=== PATIENT | male | born 1960 | race Caucasian/White ===

== ENCOUNTER 2020-08-12 19:19 | Inpatient (IN) | payer BC ==
[~2020-08-12] VITALS: Ht 182.9 cm; Wt 161.9 kg
[~2020-08-12 19:19] MED LIST: CLARITIN 1010 MG/TAB PO; NORVASC 5MG5 MG/TAB PO; PRILOSEC 20MG20 MG PO; ZITHROMAX Z PA250 MG PO
[2020-08-12 20:06] LABS: BASO # 0.1 (0.0-0.2); BASO % 0.6 % (0.0-2.0); EOS # 0.5 (0.0-0.7); EOS % 5.1 % (0-4.0); GRAN # 5.1 (1.4-6.5); GRAN % 50.4 % (42.2-75.2); HEMATOCRIT 45.4 % (42.0-52.0); HEMOGLOBIN 14.9 g/dl (13.5-18.0); LYMPH # 3.7 (1.2-3.4); LYMPH % 36.4 % (20.0-51.0); MEAN CELL VOLUME 88 fl (80.0-100.0); MEAN CORPUSCULAR HEMOGLOBIN 29 pg (27.0-31.0); MEAN CORPUSCULAR HGB CONC 33 g/dl (33.0-37.0); MEAN PLATELET VOLUME 9.8 fl (7.4-10.4); MONO # 0.7 (0.1-0.6); PLATELET COUNT 326 K/mm3 (130-400); RED BLOOD COUNT 5.18 M/mm3 (4.20-5.60); REDCELL DISTRIBUTION WIDTH-CV 12.6 % (11.5-14.5)
[2020-08-12 20:18] LABS: ALBUMIN 4.1 gm/dL (3.5-5.0); BILIRUBIN,TOTAL 0.2 mg/dL (0.0-1.0); CALCIUM 9.3 mg/dL (8.4-10.2); CREATININE, serum 0.8 (0.66-1.25); POTASSIUM 3.9 mmol/L (3.4-5.0); TOTAL PROTEIN 7.6 gm/dL (6.4-8.2)
[2020-08-12 20:31] LABS: TROPONIN-I 1.64 ng/mL (0.000-0.035)
[2020-08-12] MEDS ORDERED: ASPIRIN E.C. 8181 MG PO (21:34)
[2020-08-12] MEDS ORDERED: NORVASC 10MG10 MG PO (21:34)
[2020-08-12] MEDS ORDERED: NITROGLYCE0.4 MG/Ac2 TL (21:35)
[2020-08-12] MEDS ORDERED: COREG 6.256.25 MG/TA PO (21:35)
[2020-08-12] MEDS ORDERED: LIPITOR 80MG80 MG PO (21:35)
[2020-08-12] MEDS ORDERED: IMDUR 60MG60 MG/TAB PO (21:35)
[2020-08-12 22:58] VITALS: BP 151/82; PULSE 62; TEMP 98.2
[2020-08-12] MEDS ORDERED: ONE-A-DAY ESSE1 EACH PO (23:01)
[2020-08-12] MEDS ORDERED: OMEGA-3 1000 MG1 CAP PO (23:01)
[2020-08-12] MEDS ORDERED: PHARMASSURE ZIN50 MG PO (23:01)
--- NOTE | 2020-08-12 23:57 | NUR ---
Patient alert and oriented x 4, and able to make needs known. Denies having pain and discomfort at this time. Peripheral IV to right forearm. NS running per orders. Heparin drip running at 10 ml/hr. Site without redness, warmth, swelling, and pain. Denies having SOB and dyspnea, except with exertion. HRR. Telemetry in place. Capillary refill less than 3 seconds. Non-tenting skin turgor. BSAx4. Abdomen soft and non-tender. Voices no questions, needs, or concerns at this time. Resting in bed with call light within reach.
[2020-08-13] VITALS (219 sets, daily range): BP systolic 121–150; BP diastolic 59–88; PULSE 60–110; TEMP 98–98.9; O2SAT 89–100
[2020-08-13] LABS: MAGNESIUM 2.2 mg/dL (1.6-2.3)
[2020-08-13 00:14] LABS: TROPONIN-I 1.56 ng/mL (0.000-0.035)
[2020-08-13 03:43] LABS: PARTIAL THROMBOPLASTIN TIME 42.1 SECONDS (26.0-37.0)
--- NOTE | 2020-08-13 05:50 | NUR ---
Patient has been resting in bed with call light within reach. Denies having pain and discomfort. IV fluids continue per orders. Heparin drip increased to 11.5 ml/hr (1150 units/hr) per protocol, and verified by Charge nurse. Recheck lab at 1000. Has been NPO per orders. Voices no questions, needs, or concerns at this time. Resting in bed with call light within reach.
[2020-08-13 07:06] LABS: HEMATOCRIT 45.6 % (42.0-52.0); HEMOGLOBIN 15.1 g/dl (13.5-18.0); MEAN CELL VOLUME 88 fl (80.0-100.0); MEAN CORPUSCULAR HEMOGLOBIN 29 pg (27.0-31.0); MEAN CORPUSCULAR HGB CONC 33 g/dl (33.0-37.0); MEAN PLATELET VOLUME 9.6 fl (7.4-10.4); PLATELET COUNT 303 K/mm3 (130-400); REDCELL DISTRIBUTION WIDTH-CV 12.7 % (11.5-14.5)
[2020-08-13 07:18] LABS: CREATININE, serum 0.82 (0.66-1.25)
[2020-08-13 07:19] LABS: CHOLESTEROL RISK RATIO 5.2
[2020-08-13 07:35] LABS: TROPONIN-I 1.24 ng/mL (0.000-0.035)
--- NOTE | 2020-08-13 07:44 | NUR ---
CRITICAL TROPONIN RESULT OF 1.24 CALLED TO MARILUZ KEYES. NO ORDERS GIVEN AT THIS TIME.
--- NOTE | 2020-08-13 08:20 | NUR ---
PATIENT ALERT & ORIENTED. VITAL SIGNS STABLE. DENIES PAIN AT THIS TIME. NPO WITH NO N/V. PATIENT ADMITTED WITH NSTEMI. TELEMETRY HEART MONITOR NORMAL SINUS RHYTHM. AUSCULTATION SHOWS REGULAR HEART RATE WITH S1 & S2 SOUNDS PRESENT. BOWEL SOUNDS HYPOACTIVE X4. DENIES PASSING GAS. PEDAL PULSES 1+ AND TIBIALIS POSTERIORS 1+. ALL OTHER ASSESSMENTS WITHIN NORMAL LIMITS. IV RIGHT FOREARM WITH NORMAL SALINE RUNNING @ 30 ML/HR AND HEPARIN DRIP AT 11.5 UNITS/HR. NO REDNESS, DRAINAGE, OR EDEMA PRESENT. DENIES OTHER NEEDS AT THIS TIME. WILL CONTINUE TO MONITOR. CALL LIGHT WITHIN REACH.
--- NOTE | 2020-08-13 08:20 | NUR ---
MORNING SHIFT ASSESSMENT DOCUMENTED BY SN LB. THIS NURSE REVIEWED AND AGREES WITH DOCUMENTED SHIFT ASSESSMENT.
--- NOTE | 2020-08-13 08:22 | NUR ---
Patient's left forefinger and thumb cool to touch with delayed cap refill. Radial pulse palpable and equal bilaterally.
--- NOTE | 2020-08-13 09:05 | NUR ---
PATIENT CALLED OUT REPORTING LEFT ARM WEAKNESS. UPON ENTRY TO THE ROOM THE PATIENT STATES THAT HE HAS NEW SORENESS IN HIS SHOULDER THAT RADIATES DOWN TO HIS ELBOW. PATIENT STATES THAT THESE ARE NEW SYMPTOMS FOR HIM. MARILUZ KEYES CALLED AND NOTIFIED. ORDERS FOR EKG AND TROPONIN PLACED. RUFINO WITH CARDIOPULMONARY NOTIFED.
--- NOTE | 2020-08-13 10:26 | NUR ---
CONSENT FORM FOR CARDIAC CATH SIGNED AND PLACED ON PATIENT CHART. PATIENT BRUSHING TEETH IN BED AT THIS TIME. PATIENT IS NOW REPORTING NUMBNESS AND TINGLING IN HIS FIRST THREE FINGERS OF HIS RIGHT HAND, PATIENT REPORTS THIS IS NEW.
--- NOTE | 2020-08-13 10:42 | NUR ---
MARILUZ KEYES CALLED AND NOTIFIED OF THE NEW ONSET TINGLING IN THE PATIENTS FIRST THREE FINGERS OF HIS RIGHT HAND. MARILUZ KEYES ALSO NOTIFIED OF CRITICAL TROPONIN OF 1.000, WHICH IS TRENDING DOWN. NO NEW ORDERS GIVEN AT THIS TIME.
--- NOTE | 2020-08-13 10:45 | NUR ---
HEPARIN DRIP RATE CHANGED FROM 11.5 TO 13.0 ML/HR. CIARAN PHARMACIST CHANGED RATE ORDER IN COMPUTER DUE TO ICU TRANSFER ORDERS IN PLACE. NEXT HEPXA DRAW AT 1645.
--- NOTE | 2020-08-13 14:10 | NUR ---
PT TRANSFERED FROM 341 TO ICU 5. PT IS AXOX4. PT'S VSS. PT SHOWING SR ON TELE. PT DENIES ANY PAIN, BUT HAS TINGLING IN BILATERAL HANDS. DAUGHTER AND BEDSIDE. PT NPO. PT HAS HEPARIN RUNNING. PT SCHEDULED TO GO TO MOLDING LINE OPERATOR AT 1600. PT INSTRUCTED TO CALL WITH ANY CP, SOB, OR DIZZINESS. WILL CONTINUE TO MONITOR.
--- NOTE | 2020-08-13 14:15 | NUR ---
Welder Apprentice Arc met with patient to discuss discharge planning. Patient's , Frances (ph#[phone]) and daughter, Kristie are at bedside. Patient lives in [place] with his and sees Dr. Lu for primary care. Patient obtains medications from [facility] with no difficulties. Patient does not use any DME and is independent with ADLS. Patient would like to complete DPOA-HC while he is here. SW assisted patient with completing the form and patient chose to designate his Frances as primary and daughter Kristie as an alternate. PINEDA and RNNikole provided witness signature. PINEDA provided original and copies to patient then placed copy in patient's chart. Patient to transfer down to ICU. Discharge Plan: Home with .
--- NOTE | 2020-08-13 14:15 | NUR ---
PATIENT REPORT GIVEN TO NICOLE ZAPATA BY SN LB AND THIS NURSE. PATIENT TRANSFERRED TO ICU ROOM 5.
--- NOTE | 2020-08-13 15:25 | NUR ---
PT TAKEN TO HARDWARE ASSEMBLER BY EKATERINA RIVERA.
--- NOTE | 2020-08-13 15:56 | NUR ---
SEE MERGE FOR ALL MEDICATION ADMINISTRATION TIMES, INTRA AND POST SEDATION ASSESSMENTS
--- NOTE | 2020-08-13 16:05 | NUR ---
PT BACK FROM KEY WORKER. PT IS AXOX4. PT DENIES PAIN. PT'S VSS. PT HAS RIGHT GROIN SITE C/D/I. HEPARIN DRIP DCD. WILL CONTINUE TO MONITOR.
--- NOTE | 2020-08-13 19:00 | NUR ---
Received report from NICOLE Bess. Patient resting quietly in bed watching television. All vitals within normal limits; patient denies any pain or discomfort. Right groin cath access site is clean, dry, intact, soft, and without hematoma formation. All pulses palpable. Reinforced flat time restrictions until 1999. No further needs noted at this time.
--- NOTE | 2020-08-13 21:00 | NUR ---
Patient's flat time up at 1999. Raised patient's HOB to a 45 degree angle before progressing to sitting on the edge of bed, and finally standing. Patient tolerated well. No bleeding noted at right groin cath access site. Site remains soft and without hematoma formation. All vitals within normal limits.
[2020-08-14] VITALS (288 sets, daily range): BP systolic 137–139; BP diastolic 69–77; PULSE 66–71; TEMP 97.9–98.3; O2SAT 79–100
[2020-08-14 07:19] LABS: BASO % 0.3 % (0.0-2.0); EOS # 0.3 (0.0-0.7); EOS % 3.6 % (0-4.0); GRAN # 5.4 (1.4-6.5); GRAN % 62.1 % (42.2-75.2); HEMATOCRIT 47.5 % (42.0-52.0); HEMOGLOBIN 15.3 g/dl (13.5-18.0); LYMPH # 2.2 (1.2-3.4); LYMPH % 25.6 % (20.0-51.0); MEAN CELL VOLUME 89 fl (80.0-100.0); MEAN CORPUSCULAR HEMOGLOBIN 29 pg (27.0-31.0); MEAN CORPUSCULAR HGB CONC 32 g/dl (33.0-37.0); MEAN PLATELET VOLUME 9.8 fl (7.4-10.4); MONO # 0.7 (0.1-0.6); MONO % 7.8 % (1.7-9.3); PLATELET COUNT 313 K/mm3 (130-400); RED BLOOD COUNT 5.35 M/mm3 (4.20-5.60); REDCELL DISTRIBUTION WIDTH-CV 12.9 % (11.5-14.5)
[2020-08-14 07:38] LABS: CALCIUM 9.2 mg/dL (8.4-10.2); CREATININE, serum 0.8 (0.66-1.25); POTASSIUM 4.1 mmol/L (3.4-5.0)
[2020-08-14] MEDS ORDERED: PLAVIX 75MG TAB75 MG PO (11:05)
--- NOTE | 2020-08-14 11:33 | NUR ---
Photo Tube Assembler attended clinical rounds with the team. The patient's daughter and at bedside. SW staffed with the patient's nurse, the patient is independent. The patient to discharge home today, 08/14. There are no additional needs.
--- NOTE | 2020-08-14 12:05 | NUR ---
DISCHARGE INFORMATION AND PACKET GIVEN TO PATIENT INCLUDING FOLLOW UP APPTS AND POST CATH GUIDELINES. PATIENT VERBALIZES UNDERSTANDING AND DISCHARGES AT THIS TIME
== END 2020-08-14 12:05 | disposition home or self-care (01) | DRG 281 ==
LOC: COL.ER 19:19 → SURG 20:39 → EDBEDREQ 22:26 → SURG 23:00 → ICU 08-13 10:20
PROVIDERS: Emergency Medicine; Nurse Practitioner; Physician Assistant; ADMIT Internal Medicine
PROC: 4A023N7 Measurement of Cardiac Sampling and Pressure, Left Heart, Percutaneous Approach (ICD-10-PCS; principal; 2020-08-13)
PROC: B2111ZZ Fluoroscopy of Multiple Coronary Arteries using Low Osmolar Contrast (ICD-10-PCS; 2020-08-13)
DX: I21.4 Non-ST elevation (NSTEMI) myocardial infarction (principal); Z68.42 Body mass index [BMI] 45.0-49.9, adult; E66.01 Morbid (severe) obesity due to excess calories; E78.5 Hyperlipidemia, unspecified; I10 Essential (primary) hypertension; I25.10 Atherosclerotic heart disease of native coronary artery without angina pectoris; Z79.82 Long term (current) use of aspirin
CPT/HCPCS: 99222-AI; 99233-AI; 99239; C1760; C1894; J1644; J1650; J2250; J3010; J7030; Q9967

== ENCOUNTER 2020-09-21 15:40 | Outpatient (RCR) | payer BC ==
[~2020-09-21 15:40] MED LIST changes: +ASPIRIN E.C. 8181 MG PO; +COREG 6.256.25 MG/TA PO; +IMDUR 60MG60 MG/TAB PO; +LIPITOR 80MG80 MG PO; +NITROGLYCE0.4 MG/Ac2 TL; +NORVASC 10MG10 MG PO; +OMEGA-3 1000 MG1 CAP PO; +ONE-A-DAY ESSE1 EACH PO; +PHARMASSURE ZIN50 MG PO; +PLAVIX 75MG TAB75 MG PO
== END 2020-11-23 | disposition home or self-care (01) ==
LOC: COL.CR
DX: I21.4 Non-ST elevation (NSTEMI) myocardial infarction (principal)

== ENCOUNTER 2020-10-01 10:19 | Emergency (ER) | payer BC ==
[~2020-10-01] VITALS: Ht 188 cm; Wt 150.0 kg
[2020-10-01 10:35] VITALS: TEMP 97.3
[2020-10-01 10:55] LABS: BASO # 0.1 (0.0-0.2); BASO % 0.6 % (0.0-2.0); EOS # 0.2 (0.0-0.7); EOS % 2.4 % (0-4.0); GRAN # 5.2 (1.4-6.5); GRAN % 57.1 % (42.2-75.2); HEMATOCRIT 46.9 % (42.0-52.0); HEMOGLOBIN 15.3 g/dl (13.5-18.0); LYMPH # 2.8 (1.2-3.4); LYMPH % 31.1 % (20.0-51.0); MEAN CELL VOLUME 87 fl (80.0-100.0); MEAN CORPUSCULAR HEMOGLOBIN 28 pg (27.0-31.0); MEAN CORPUSCULAR HGB CONC 33 g/dl (33.0-37.0); MEAN PLATELET VOLUME 9.4 fl (7.4-10.4); MONO # 0.7 (0.1-0.6); MONO % 8.1 % (1.7-9.3); PLATELET COUNT 305 K/mm3 (130-400); RED BLOOD COUNT 5.39 M/mm3 (4.20-5.60); REDCELL DISTRIBUTION WIDTH-CV 13.1 % (11.5-14.5)
[2020-10-01 11:07] LABS: ALANINE AMINOTRANSFERASE 109 U/L (4-49); ALBUMIN 4.2 gm/dL (3.5-5.0); ALKALINE PHOSPHATASE 86 U/L (50-136); ANION GAP 5 mmol/L (7-16); AST,SGOT 59 U/L (15-37); BILIRUBIN,TOTAL 0.5 mg/dL (0.0-1.0); BLOOD UREA NITROGEN 16 mg/dL (9-20); CALCIUM 9.5 mg/dL (8.4-10.2); CARBON DIOXIDE 27 mmol/L (22-30); CHLORIDE 105 mmol/L (98-107); CREATININE, serum 0.73 (0.66-1.25); GLUCOSE 102 mg/dL (74-106); POTASSIUM 4.1 mmol/L (3.4-5.0); SODIUM 137 mmol/L (137-145); TOTAL PROTEIN 7.3 gm/dL (6.4-8.2)
[2020-10-01 11:08] LABS: PARTIAL THROMBOPLASTIN TIME 28.5 SECONDS (26.0-37.0)
[2020-10-01 11:19] LABS: TROPONIN-I < 0.012 ng/mL (0.000-0.035)
[2020-10-01 15:09] VITALS: BP 118/69; PULSE 61
== END 2020-10-01 15:18 | disposition home or self-care (01) ==
LOC: COL.ER 10:19
PROVIDERS: Family Medicine
DX: I21.4 Non-ST elevation (NSTEMI) myocardial infarction (principal); I10 Essential (primary) hypertension; E78.5 Hyperlipidemia, unspecified; E66.01 Morbid (severe) obesity due to excess calories; Z86.79 Personal history of other diseases of the circulatory system; Z98.61 Coronary angioplasty status; Z68.41 Body mass index [BMI] 40.0-44.9, adult; Z79.02 Long term (current) use of antithrombotics/antiplatelets; Z79.82 Long term (current) use of aspirin; Z79.899 Other long term (current) drug therapy

== ENCOUNTER 2023-04-27 08:47 | Day surgery (SDC) | payer BC ==
[~2023-04-27] VITALS: Ht 188 cm; Wt 161.9 kg
[2023-04-27] MEDS ORDERED: NEURONTIN100 MG/CAP PO (09:03)
[2023-04-27] MEDS ORDERED: NEURONTIN300 MG/CAP PO (09:06)
[2023-04-27] MEDS ORDERED: FLOMAX 0.40.4 MG/CAP PO (09:07)
[2023-04-27] MEDS ORDERED: COZAAR 50MG50 MG/TAB PO (09:07)
[2023-04-27 09:08] VITALS: BP 138/67; PULSE 56; TEMP 97.3
[2023-04-27 10:56] VITALS: BP 98/69; PULSE 60; TEMP 97.5
[2023-04-27 11:10] VITALS: BP 118/81; PULSE 58
[2023-04-27 11:25] VITALS: BP 135/84; PULSE 60
--- NOTE | 2023-04-27 11:55 | NUR ---
1056 RETURNS TO ROOM 1 FROM OR. AWAKE, ALERT. RESP CLEAR, SPONTANEOUS. HOB ELEVATED 50 DEGREES. VITAL SIGNS OBTAINED. INCISION LEFT TEMPORAL AREA INTACT. NO DRAINAGE OBSERVED. DENIES PAIN. CALL LIGHT AT SIDE. IN ROOM 1115 HOB ELEVATED 80 DEGREES. TOLERATES PO JUICE WITHOUT NAUSEA 1130 DISCHARGE INSTRUCTIONS REVIEWED. PATIENT VERBALIZES UNDERSTANDING. COPY PROVIDED IN DISCHARGE FOLDER. 1145 SITS ON EDGE OF CART. DRESSES SELF THEN AMBULATES TO BATHROOM WITH STANDBY ASSIST.
== END 2023-04-27 11:55 | disposition home or self-care (01) ==
LOC: SDCO 08:47
DX: M79.5 Residual foreign body in soft tissue (principal); R51.9 Headache, unspecified; G47.33 Obstructive sleep apnea (adult) (pediatric)
CPT/HCPCS: J0690; J1100; J2405; J2704; J3010; J7120